=== PATIENT | male | born 1970 | race African-American/Black ===

== ENCOUNTER 2020-03-04 15:11 | Emergency (ER) | payer OTHER ==
[2020-03-04] MEDS ORDERED: NA CHLORIDE 0.9% 2,000 ML ONE (16:21)
[2020-03-04 16:40] LABS: Potassium 3.8 mmol/L (3.5-5.1)
[2020-03-04 17:23] LABS: Urine Blood TRACE (NEG); Urine Glucose 2+ (NEG); Urine Protein NEGATIVE (NEG); Urine Specific Gravity 1.015 (1.005-1.030)
--- NOTE | 2020-03-04 17:43 | EDPHYS ---
Physician Documentation [facility] Name: Noah Dubois Age: 49 yrs Sex: Male : 1970 Arrival Date: 03/04/2020 Time: 15:14 Bed 25 Private MD: DEMETRA Physician Wolf Mednoza HPI: 03/04 15:36 This 49 yrs old Male presents to ER via Unassigned with complaints of Medical Clearance.jmm 15:36 This is a 49 year old male with a history of DM that presents to the ED with no jmm complaints. Patient states at work his BGL was elevated. Patient states he felt symptoms of overheating. Patient currently denies shortness of breath, chest pain, weakness. . Historical: - Allergies: 15:30 No Known Allergies; vc - Home Meds: 15:30 metformin 1,000 mg Oral tab 1 tab 2 times per day for Type 2 Diabetes Mellitus [Active];vc - PMHx: 15:30 Diabetes - NIDDM; vc - Immunization history:: Adult Immunizations up to date. - Social history:: Smoking status: Patient denies any tobacco usage or history of. ROS: 15:36 Constitutional: Negative for fever, chills, and weight loss, Cardiovascular: Negative jmm for chest pain, palpitations, and edema, Respiratory: Negative for shortness of breath, cough, wheezing, and pleuritic chest pain, Abdomen/GI: Negative for abdominal pain, nausea, vomiting, diarrhea, and constipation, Neuro: Negative for headache, weakness, numbness, tingling, and seizure. 15:36 All other systems are negative. Exam: 15:36 Constitutional: This is a well developed, well nourished patient who is awake, alert, jmm and in no acute distress. Head/Face: atraumatic. Eyes: EOMI, no conjunctival erythema appreciated ENT: Moist Mucus Membranes Neck: Trachea midline, Supple Chest/axilla: Normal chest wall appearance and motion. Cardiovascular: Regular rate and rhythm. No edema appreciated Respiratory: Normal respirations, no respiratory distress appreciated Abdomen/GI: Non distended, soft Back: Normal ROM Skin: General appearance color normal MS/ Extremity: Moves all extremities, no obvious deformities appreciated, no edema noted to the lower extremities Neuro: Awake and alert, normal gait Psych: Behavior is normal, Mood is normal, Patient is cooperative and pleasant Vital Signs: 15:27 BP 146 / 90; Pulse 99; Resp 17; Temp 98.1; Pulse Ox 100% on R/A; Weight 122.47 kg; vc Height 5 ft. 11 in. (180.34 cm); Pain 0/10; 16:30 BP 120 / 83; Pulse 77; Resp 18; Pulse Ox 100% on R/A; vc 17:30 BP 138 / 95; Pulse 73; Resp 17; Pulse Ox 95% on R/A; vc 15:27 Body Mass Index 37.66 (122.47 kg, 180.34 cm) vc MDM: 15:35 Patient medically screened. [facility] 17:41 Data reviewed: vital signs, nurses notes. Counseling: I had a detailed discussion with ranjit the patient and/or guardian regarding: the historical points, exam findings, and any diagnostic results supporting the discharge/admit diagnosis, lab results, the need for outpatient follow up, to return to the emergency department if symptoms worsen or persist or if there are any questions or concerns that arise at home. ED course: Patient is alert and non toxic in appearance in the ED. Lab findings discussed with the patient. Patient has an anion gap of 8. I do not suspect DKA. Patient states he was unable to obtain metformin until recently. Patient states he is from [facility] and was out of his medication. Patient advised to resume metoformin and otherwise given strict return precautions. Patient understood and agrees with the plan of care. . 03/04 15:36 Order name: BMP; Complete Time: 16:40 [facility] 03/04 15:38 Order name: Glucose, Ancillary Testing; Complete Time: 16:21 [facility] 03/04 15:38 Order name: CPK; Complete Time: 16:40 [facility] 03/04 16:26 Order name: Urine Dipstick--Ancillary (enter results); Complete Time: 17:26 03/04 17:40 Order name: Glucose, Ancillary Testing; Complete Time: 17:45 [facility] 03/04 15:36 Order name: Urine Dipstick-Ancillary (obtain specimen); Complete Time: 16:25 [facility] 03/04 15:36 Order name: Saline Lock; Complete Time: 16:25 [facility] 03/04 17:21 Order name: Finger Stick; Complete Time: 17:30 [facility] Administered Medications: 16:25 Drug: NS 0.9% 2000 ml Route: IV; Rate: 1 bolus; Site: right antecubital; vc 17:56 Follow up: IV Status: Completed infusion; IV Intake: 2000ml vc Disposition: 03/04/20 17:42 Discharged to Home. Impression: Hyperglycemia, unspecified, Renal Insufficiency. - Condition is Stable. - Discharge Instructions: Hyperglycemia. - Work release form, Medication Reconciliation Form, Thank You Letter, Antibiotic Education, Prescription Opioid Use form. - Follow up: Private Physician; When: 2 - 3 days; Reason: Recheck today's complaints, Continuance of care, Re-evaluation by your physician. Signatures: Dispatcher [employer] EDMS Anatoly Austin PA PA jmm Calcote, Vanessa RN RN vc Corrections: (The following items were deleted from the chart) 17:43 17:42 03/04/2020 17:42 Discharged to Home. Impression: Hyperglycemia, unspecified. [facility] Condition is Stable. Forms are Medication Reconciliation Form, Thank You Letter, Antibiotic Education, Prescription Opioid Use. Follow up: Private Physician; When: 2 - 3 days; Reason: Recheck today's complaints, Continuance of care, Re-evaluation by your physician. [facility] 18:33 17:43 03/04/2020 17:42 Discharged to Home. Impression: Hyperglycemia, unspecified; vc Renal Insufficiency. Condition is Stable. Forms are Medication Reconciliation Form, Thank You Letter, Antibiotic Education, Prescription Opioid Use. Follow up: Private Physician; When: 2 - 3 days; Reason: Recheck today's complaints, Continuance of care, Re-evaluation by your physician. [facility]
--- NOTE | 2020-03-04 17:43 | ER ---
Nurse's Notes [facility] Name: Noah Dubois Age: 49 yrs Sex: Male : 1970 Arrival Date: 03/04/2020 Time: 15:14 Bed 25 Private MD: Diagnosis: Hyperglycemia, unspecified;Renal Insufficiency Presentation: 03/04 15:27 Chief complaint: Patient states: "They checked my sugar at work at it was 420 so they vc want me to be medically cleared before I come back.". 15:27 Method Of Arrival: Ambulatory vc 15:27 Coronavirus screen: Proceed with normal triage. Ebola Screen: No symptoms or risks vc identified at this time. Initial Sepsis Screen: Does the patient meet any 2 criteria? No. Patient's initial sepsis screen is negative. Does the patient have a suspected source of infection? No. Patient's initial sepsis screen is negative. Risk Assessment: Do you want to hurt yourself or someone else? Patient reports no desire to harm self or others. Onset of symptoms was March 04, 2020. 15:27 Acuity: JUAN CARLOS 3 vc Triage Assessment: 15:30 General: Appears in no apparent distress. comfortable, Behavior is calm, cooperative, vc appropriate for age. Pain: Denies pain. Historical: - Allergies: 15:30 No Known Allergies; vc - Home Meds: 15:30 metformin 1,000 mg Oral tab 1 tab 2 times per day for Type 2 Diabetes Mellitus [Active];vc - PMHx: 15:30 Diabetes - NIDDM; vc - Immunization history:: Adult Immunizations up to date. - Social history:: Smoking status: Patient denies any tobacco usage or history of. Screenin:30 Abuse screen: Denies threats or abuse. Nutritional screening: No deficits noted. vc Tuberculosis screening: No symptoms or risk factors identified. Fall Risk None identified. Assessment: 15:30 General: Appears in no apparent distress. comfortable, Behavior is calm, cooperative, vc appropriate for age. Pain: Denies pain. Neuro: Level of Consciousness is awake, alert, obeys commands, Oriented to person, place, time, situation. Cardiovascular: Capillary refill < 3 seconds Patient's skin is warm and dry. Respiratory: Airway is patent Respiratory effort is even, unlabored, Respiratory pattern is regular, symmetrical. GI: No signs and/or symptoms were reported involving the gastrointestinal system. : No signs and/or symptoms were reported regarding the genitourinary system. EENT: No deficits noted. Derm: Skin is intact, is healthy with good turgor, Skin is pink, warm \\T\\ dry. Skin temperature is warm. 16:30 Reassessment: Patient appears in no apparent distress at this time. Patient and/or vc family updated on plan of care and expected duration. Pain level reassessed. Patient is alert, oriented x 3, equal unlabored respirations, skin warm/dry/pink. Patient denies pain at this time. 17:30 Reassessment: Patient appears in no apparent distress at this time. Patient and/or vc family updated on plan of care and expected duration. Pain level reassessed. Patient is alert, oriented x 3, equal unlabored respirations, skin warm/dry/pink. Patient denies pain at this time. Vital Signs: 15:27 BP 146 / 90; Pulse 99; Resp 17; Temp 98.1; Pulse Ox 100% on R/A; Weight 122.47 kg; vc Height 5 ft. 11 in. (180.34 cm); Pain 0/10; 16:30 BP 120 / 83; Pulse 77; Resp 18; Pulse Ox 100% on R/A; vc 17:30 BP 138 / 95; Pulse 73; Resp 17; Pulse Ox 95% on R/A; vc 15:27 Body Mass Index 37.66 (122.47 kg, 180.34 cm) vc ED Course: 15:14 Patient arrived in ED. ag5 15:14 Anatoly Austin PA is [facility] 15:15 Wolf Mendoza MD is Attending Physician. [facility] 15:15 Maria Dolores Cohen, JONATHAN is Primary Nurse. vc 15:30 Arm band placed on left wrist. vc 15:30 Patient has correct armband on for positive identification. Bed in low position. Call vc light in reach. Pulse ox on. NIBP on. 16:28 Triage completed. vc 18:11 No provider procedures requiring assistance completed. IV discontinued, intact, vc bleeding controlled, No redness/swelling at site. Pressure dressing applied. Administered Medications: 16:25 Drug: NS 0.9% 2000 ml Route: IV; Rate: 1 bolus; Site: right antecubital; vc 17:56 Follow up: IV Status: Completed infusion; IV Intake: 2000ml vc Intake: 17:56 IV: 2000ml; Total: 2000ml. vc Outcome: 17:42 Discharge ordered by MD. [facility] 18:32 Discharged to home ambulatory. vc 18:32 Condition: good 18:32 Discharge instructions given to patient, Instructed on discharge instructions, follow up and referral plans. Demonstrated understanding of instructions, follow-up care. 18:33 Patient left the ED. vc Signatures: Anatoly Austin PA PA jmm Gaskin, Ajare ag5 Maria Dolores Cohen, RN RN vc
[2020-03-04 22:20] VITALS: TEMP 98.1; O2SAT 100
[2020-03-04 22:21] VITALS: BP 120/83
== END 2020-03-04 18:33 | disposition home or self-care (01) ==
LOC: ER 15:11
DX: E11.65 Type 2 diabetes mellitus with hyperglycemia (principal); N28.9 Disorder of kidney and ureter, unspecified
CPT/HCPCS: 96361; 80048; 36415; 82550; 82947 ×2; 81003; 96360; 99283; J7030